=== PATIENT | male | born 1980 | race Caucasian/White ===

== ENCOUNTER 2017-09-17 15:07 | Emergency (ER) | payer BC ==
[~2017-09-17] VITALS: Ht 177.8 cm; Wt 97.5 kg
== END 2017-09-17 17:19 | disposition short-term general hospital (02) ==
LOC: ER 15:07
DX: S68.111A Complete traumatic metacarpophalangeal amputation of left index finger, initial encounter (principal); W22.8XXA Striking against or struck by other objects, initial encounter; Z88.5 Allergy status to narcotic agent
CPT/HCPCS: 73130; 90471; 90714; 96374; 99285; J0690